=== PATIENT | female | born 1940 | race African-American/Black ===

== ENCOUNTER 2016-11-08 05:12 | Emergency (ER) | payer OTHER ==
[~2016-11-08 05:12] MED LIST: ASAB PO; CENTRUM PO; CENTRUM TAB1 TAB PO; CO Q-10100 MG PO; COREG12 PO; COREG25 PO; COZ50 PO; DIOV160 PO; FISH OIL1200 MG PO; FISH-EPA1000 MG PO; JANTOVEN2 MG PO; JANTOVEN5 MG PO; L20 PO; MAG OXIDE250 MG PO; MAGNESIUM PO; PRILO PO; PRILOSEC40 MG PO; SPIRO25 PO; VITAMIN B-121000 MC1 SL
[2016-11-08 08:33] LABS: BASOPHILS 0.1 %; BASOPHILS ABSOLUTE 0.01 10/3/uL (0.0-0.16); EOSINOPHILS 1.8 %; EOSINOPHILS ABSOLUTE 0.14 10/3/uL (0.0-0.53); ER CBC TAT 0 Hrs 07 Mins; HEMATOCRIT 43.3 % (36.0-48.0); HEMOGLOBIN 14.8 g/dL (12.0-16.0); IMMATURE GRANULOCYTES 0.3 %; IMMATURE GRANULOCYTES ABSOLUTE 0.02 10/3/uL (0.0-0.11); LYMPHOCYTES 29.7 %; LYMPHOCYTES ABSOLUTE 2.25 10/3/uL (0.67-4.30); MEAN CORPUS HGB CONC 34.2 g/dL (32.0-36.0); MEAN CORPUSCULAR HEMOGLOB 33.1 pg (26.0-34.0); MEAN CORPUSCULAR VOLUME 96.9 fL (80-100); MEAN PLATELET VOLUME 10.4 fL (9.2-13.0); MONOCYTES 10.7 %; MONOCYTES ABSOLUTE 0.81 10/3/uL (0.21-1.20); NEUTROPHILS 57.4 %; NEUTROPHILS ABSOLUTE 4.35 10/3/uL (2.02-8.40); PLATELET COUNT 220 10/3/uL (150-400); RBC DISTRIBUTION WIDTH 14.4 % (12.0-16.0); RED CELL COUNT 4.47 10/6/uL (4.0-5.6); WHITE BLOOD CELLS 7.6 10/3/uL (4.5-10.5)
[2016-11-08 08:34] LABS: MANUAL DIFF NO %
[2016-11-08 08:51] LABS: ALBUMIN 4.1 G/DL (3.5-5.0); ALKALINE PHOSPHATASE 88 U/L (45-117); BUN (BLOOD UREA NITROGEN) 36 MG/DL (6-23); CALCIUM, SERUM 9.9 MG/DL (8.5-10.4); CO2 (CARBON DIOXIDE) 26 MMOL/L (24-34); CREATININE 1.53 MG/DL (0.55-1.02); GFR AFRICAN AMERICAN 39 ML/MIN (>=60); GFR NON AFRICAN AMERICAN 33 ML/MIN (>=60); POTASSIUM, SERUM 4.7 MMOL/L (3.5-5.3); SGOT(AST) 22 U/L (5-40); SGPT(ALT) 39 U/L (5-65); TOTAL BILIRUBIN 0.9 MG/DL (0-1.2); TOTAL PROTEIN 7.9 G/DL (6.0-8.5)
[2016-11-08 08:57] LABS: A/G RATIO 1.1 (0.7-1.9); CHLORIDE, SERUM 93 MMOL/L (96-112); CPK 162 U/L (0-200); GLOBULIN 3.8 G/DL (2.5-4.1); GLUCOSE, SERUM 103 MG/DL (60-99); SODIUM, SERUM 124 MMOL/L (135-148)
[2016-11-08 08:59] LABS: INTERNATIONAL NORMAL RATI 4.7 UNITS (-); PARTIAL THROMBO TIME 43.6 SEC (22.5-37.2)
[2016-11-08 09:00] LABS: PROTIME (NOT ORD) 43.7 SEC (12.0-14.5)
[2016-11-08 09:18] LABS: ASCORBIC ACID (UR NOT ORDER) NEG (NEG); BILIRUBIN, URINE NEGATIVE (NEG); KETONE, URINE NEGATIVE (NEG); LEUKOCYTE ESTERASE(NOT OR NEG (NEG); NITRITE (URINE) NEG (NEG); WBC (NOT ORDERED) (RFLEX) 1 (0-5)
[2016-12-27] MEDS ORDERED: ZANTAC 150 PO (12:57)
[2016-12-27] MEDS ORDERED: PRILO PO (12:57)
[2016-12-27] MEDS ORDERED: COREG25 PO (12:57)
[2016-12-27] MEDS ORDERED: SPIRO25 PO (12:58)
[2016-12-27] MEDS ORDERED: MUSCLE RUB TOP (12:59)
[2016-12-27] MEDS ORDERED: MOMUD PO (12:59)
[2016-12-27] MEDS ORDERED: L20 PO (13:00)
[2016-12-27] MEDS ORDERED: JANTOVEN1 MG PO (13:00)
[2016-12-27] MEDS ORDERED: CENTRUM PO (13:01)
[2016-12-27] MEDS ORDERED: ALPHAGAN P0.1 % OPH (13:02)
== END 2016-11-08 10:45 | disposition home or self-care (01) ==
LOC: ER 05:12
PROVIDERS: Emergency Medicine
DX: E87.1 Hypo-osmolality and hyponatremia (principal); I13.0 Hypertensive heart and chronic kidney disease with heart failure and stage 1 through stage 4 chronic kidney disease, or unspecified chronic kidney disease; N18.2 Chronic kidney disease, stage 2 (mild); I50.9 Heart failure, unspecified; I25.2 Old myocardial infarction; Z86.73 Personal history of transient ischemic attack (TIA), and cerebral infarction without residual deficits; Z90.710 Acquired absence of both cervix and uterus; Z88.8 Allergy status to other drugs, medicaments and biological substances; Z79.82 Long term (current) use of aspirin; Z79.01 Long term (current) use of anticoagulants; Z79.899 Other long term (current) drug therapy
CPT/HCPCS: 80053; 81001; 82550; 85025; 85610; 85730; 99283